=== PATIENT | male | born 1965 | race Hispanic/Latino ===

== ENCOUNTER 2017-12-13 13:55 | Outpatient (CLI) | payer OTHER ==
--- NOTE | 2017-12-13 16:35 | XRay Report ---
XRAY CHEST TWO VIEWS: 12/13/17 13:55:00 CLINICAL: Cough. COMPARISON: None FINDINGS: Normal heart and pulmonary vasculature.Mild prominence of the ascending aorta. The lungs are normally expanded and clear.The bones and soft tissues are normal. IMPRESSION: No acute cardiopulmonary process.Hypertensive changes in aorta.
== END 2017-12-13 13:56 | disposition home or self-care (01) ==
LOC: SPVIMAG 13:55
PROVIDERS: ATTEND Internal Medicine
DX: R05 Cough (principal)
CPT/HCPCS: 71046